=== PATIENT | female | born 1990 | race Caucasian/White ===

== ENCOUNTER → 2018-04-01 07:56 | Outpatient (CLI) | payer BC, SELFPAY ==
--- NOTE | 2018-04-01 08:00 | US_ITS ---
STUDY: ULTRASOUND OF THE FEMALE PELVIS - COMPLETE REASON FOR EXAM: Female, 27 years old. Pelvic pain. Dysfunctional uterine bleeding. LMP: Unknown. TECHNIQUE: Transabdominal and Transvaginal TECHNICAL QUALITY: Adequate. COMPARISON: None. FINDINGS: The uterus is retroverted and is in a midline position. The uterus measures 5.1 cm x 4.6 cm x 0.7 cm. Normal uterine cervix. The endometrium measures 1.7 mm in thickness, and is hyperechoic. There is no demonstrated endometrial mass. There is no demonstrated myometrial mass. I.U.D. - The patient does not have an I.U.D. The right ovary is visualized. The right ovary measures 5.1 cm x 4.1 cm x 3.1 cm. There is evidence of echogenic focus with posterior shadowing arising from the ovary. This measures 2.4 cm x 1.9 cm by 2.2 cm. A dermoid should BE ruled out. Correlation with a CT scan is recommended. There is normal arterial and normal venous vascularity. The left ovary is visualized. The left ovary measures 2.7 cm x 1.3 cm x 1.2 cm. There is no left ovarian cyst or ovarian mass. There is no visualized left adnexal mass or complex lesion. There is normal arterial and normal venous vascularity. There is minimal fluid in the cul-de-sac. Polycystic ovary disease: No. US/Transvaginal Non- IMPRESSION: Echogenic focus within the enlarged right ovary with posterior acoustical shadowing. A dermoid should be ruled out. Correlation with a CT scan of the pelvis is recommended for further evaluation. Electronically Signed: Kun Lang MD at 12:39 EDT Tel [phone], Service support ,
--- NOTE | 2018-04-01 08:00 | US_ITS ---
STUDY: ULTRASOUND OF THE FEMALE PELVIS - COMPLETE REASON FOR EXAM: Female, 27 years old. Pelvic pain. Dysfunctional uterine bleeding. LMP: Unknown. TECHNIQUE: Transabdominal and Transvaginal TECHNICAL QUALITY: Adequate. COMPARISON: None. FINDINGS: The uterus is retroverted and is in a midline position. The uterus measures 5.1 cm x 4.6 cm x 0.7 cm. Normal uterine cervix. The endometrium measures 1.7 mm in thickness, and is hyperechoic. There is no demonstrated endometrial mass. There is no demonstrated myometrial mass. I.U.D. - The patient does not have an I.U.D. The right ovary is visualized. The right ovary measures 5.1 cm x 4.1 cm x 3.1 cm. There is evidence of echogenic focus with posterior shadowing arising from the ovary. This measures 2.4 cm x 1.9 cm by 2.2 cm. A dermoid should BE ruled out. Correlation with a CT scan is recommended. There is normal arterial and normal venous vascularity. The left ovary is visualized. The left ovary measures 2.7 cm x 1.3 cm x 1.2 cm. There is no left ovarian cyst or ovarian mass. There is no visualized left adnexal mass or complex lesion. There is normal arterial and normal venous vascularity. There is minimal fluid in the cul-de-sac. Polycystic ovary disease: No. US/Pelvic (Non ) IMPRESSION: Echogenic focus within the enlarged right ovary with posterior acoustical shadowing. A dermoid should be ruled out. Correlation with a CT scan of the pelvis is recommended for further evaluation. Electronically Signed: Kun Lang MD at 12:39 EDT Tel [phone], Service support ,
== END ==
PROVIDERS: PCP Family Medicine; Visit Provider Nurse Practitioner Women's Health
DX: N93.0 Postcoital and contact bleeding (principal)
CPT/HCPCS: 76830; 76856; 93976

== ENCOUNTER 2022-01-22 06:19 | Day surgery (SDC) | payer OTHER, SELFPAY ==
--- NOTE | 2022-01-21 10:32 | PCM.HP.BLA ---
History and Physical Date of Admission: 01/22/22 HPI: The patient is a 31 year old female presenting for pre-operative visit. She is scheduled for laparoscopic right ovarian cystectomy, for right ovarian cyst, suspected mature teratoma on . Procedure discussed along with risks, benefits and complications. Other alternatives discussed for management. Consent form signed? Yes. ? ? PAST MEDICAL HISTORY PAST MEDICAL HISTORY Diagnosis Date ? Anemia ? ? Chlamydia ? ? Eczema ? ? Ovarian cyst ? ? ? PAST SURGICAL HISTORY PAST SURGICAL HISTORY Procedure Laterality Date ? ASPIRATION&/INJECTION GANGLION CYST ANY LOCATJ ? ? ? LASIK ? 2014 ? ORAL SURGERY PROCEDURE ? ? ? [place] teeth, 2009,2013 ? PAST SURGICAL HISTORY OF ? ? ? ACL ? TONSILLECTOMY HX ? CURRENT MEDICATIONS Current Outpatient Medications Medication Sig Dispense Refill ? docosanol (ABREVA TOPICAL) Apply to affected area. PRN ? ? ? cholecalciferol, vitamin D3, (VITAMIN D3 ORAL) Take by mouth. Nature Plus ? ? ? OTC NUTRITIONAL SUPPLEMENT Garden of life ( gummy) ? OTC NUTRITIONAL SUPPLEMENT Cleavers supplement, uses once daily (Patient not taking: Reported on 01/21/2022 ) ? ? ? No current facility-administered medications for this visit. ? ? ALLERGIES: Cats ? PERSONAL HISTORY: SOCIAL HISTORY Social History ? Tobacco Use ? Smoking status: Never Smoker ? Smokeless tobacco: Never Used Vaping Use ? Vaping Use: Never used Substance Use Topics ? Alcohol use: Not Currently ? ? Comment: Occasionally ? Drug use: No ? FAMILY HISTORY: FAMILY HISTORY FAMILY HISTORY Problem Relation Age of Onset ? Hypertension Mother ? ? Diabetes Father ? ? Hypertension Father ? ? Heart Father ? ? Allergies Sister ? ? Breast Cancer Sister 50 ? Half-Sister ? Allergies Sister ? ? No Known Problems Sister ? ? No Known Problems Sister ? ? other (pre-diabetes) Brother ? ? other (Dementia) Maternal Grandmother ? ? Cancer Maternal Grandfather ? ? lung ? Stroke Maternal Grandfather ? ? Stroke Paternal Grandmother ? ? Stroke Paternal Grandfather ? ? Food Allergy Daughter ? ? No Known Problems Son ? ? No Known Problems Son ? ? ? REVIEW OF SYMPTOMS: GENERAL: denies fevers or chills ENDOCRINOLOGY: has not been on steroids Cardiology : denies palpitations or chest pain Respiratory: denies SOB or cough Hematology: denies history of prolonged bleeding or easy bruising or VTE Allergy: Denies history of personal or family history of allergy to anesthesia ? PHYSICAL EXAMINATION: ? VITALS: Blood pressure 92/58, height 5' 6.5 (1.689 m), weight 158 lb (71.7 kg), last menstrual period 12/14/2020, currently . ? GENERAL: The patient is well nourished, well hydrated in no acute distress. , The patient is oriented to time, place, and person. NECK: Supple. No lynphadenopathy, normal thyroid, no thyromegaly. LUNGS: Clear to auscultation bilaterally. no wheezes, rhonchi or rales HEART: Regular rate and rhythm, Normal heart sounds and No murmurs or gallops ? IMPRESSION: Right ovarian cyst, supsect teratoma ? PLAN: The risks/benefits/alternatives and personal involved for the planned Laparoscopic right ovarian cystectomy, possible oophrectomy were reviewed with the patient. Her questions were answered to her satisfaction and she desires to proceed. Consent was signed. I reviewed with her postop instructions and expectations. ? ? I have reviewed and updated past medical and surgical history, medications and allergies Assessment & Plan Assessment/Plan (1) Benign teratoma of right ovary:
[2022-01-22] VITALS (15 sets, daily range): BP systolic 82–108; BP diastolic 49–73; PULSE 41–73; RESP 12–18; TEMP 36.6–37.1; O2SAT 94–99; BMI 25.2
--- NOTE | 2022-01-22 | OV_PTH ---
PATIENT: FERNANDO SWENSON LOC: [facility] – [place] U#:[id number] AGE/SX: 31/F ROOM: RE01/22/[address]: Dr. Jojo Ann MD : 1990 BED: DIS: 01/22/2022 SPEC #: [id number] RECD: 01/22/22 12:02 STATUS: POOL MOE #: [id number] MIGUE: 01/22/22 00:[address]: Jojo Ann DEPT: SURGICAL PATHOLOGY RECD BY: Raudel Lemus ENTERED: 01/22/22 12:02 SP TYPE: OVARY OTHR DR: Dr. Noé Salomon MD Tissues: OVARIAN CYST Procedures: Decalcification bone/plaque Surgery Specimen Level IV HEADER OPERATION: Right ovarian cystectomy PRE-OP DIAGNOSIS: Benign teratoma of right ovary TISSUE SUBMITTED: Right ovarian cyst MICROSCOPIC DIAGNOSIS Right ovarian cyst, cystectomy: Mature cystic teratoma, dermoid cyst (5 cm in greatest dimension). Physiologic follicular cyst. DEDRA:chinmay 01/29/2022 MICROSCOPIC DESCRIPTION Slides are reviewed. GROSS DESCRIPTION Received in fixative is one container labeled with the patient's name and designated right ovarian cyst. The specimen consists of a previously opened cyst measuring 5 x 4 x 3 cm. A focal solid area is noted measuring 3 x 2.5 x 2 cm. Sections of this area shows focal area of bone formation. The rest of the cyst wall measures up to 0.2 cm in thickness. A focal area on the cyst wall shows yellowish ragged surfaces. Human Resource Assistant sections are submitted in four cassettes as follows: 1 & 2 ? cyst wall, 3 & 4 ? solid area of fatty calcification. / DEDRA:chinmay 01/23/2022 TC:1 CPT: 15879, 42324
[2022-01-22 06:49] LABS: Internal QC Validated? YES +Cl - CLEAR BKGD; Pregnancy, Urine Negative Negative
[2022-01-22] MEDS: Lactated Ringers 1,000 ML 15 ML IV ×3 (06:49→12:53)
[2022-01-22] MEDS: Acetaminophen 500 MG Tablet 1000 MG PO (06:50)
[2022-01-22] MEDS: Celecoxib 200 MG Capsule 400 MG PO (06:51)
[2022-01-22 07:01] LABS: Hematocrit 41.2 % (37-47); Hemoglobin 13.3 g/dL (12.0-15.0); Mean Corp Hgb Conc 32.3 g/dL (32-36); Mean Corpuscular Hgb 30.6 pg (27.0-32.0); Mean Corpuscular Volume 94.9 fL (81-99); Mean Platelet Vol. 9.9 fl (6.2-12.0); Platelet Count 365 K/mm3 (150-450); RBC Distribution Width CV 13.7 % (11.6-14.6); RBC Distribution Width SD 47.8 fl (35.1-43.9); Red Blood Count 4.34 M/mm3 (4.2-5.4); White Blood Count 9.1 K/mm3 (4.4-11.0)
--- NOTE | 2022-01-22 07:30 | PCM.DC ---
Discharge Instructions Diet Discharge Diet: No restrictions Activity May resume sexual activity in: 1 week Dressing / Incision Call your doctor if your incision/area has: Sudden Increased Bleeding and Foul Smelling Discharge Call your doctor if you observe: Fever of 101 or Higher Cleanse incision/area with: Soap & Water (Your incisions have skin glue and it can get wet. Leave on until it falls off) Follow Up Care Please Follow Up With: Jojo Ann MD When: In my office or virtual visit in 1-2 weeks or as needed Test Results: Test results from this visit will be discussed in further detail at your follow-up appointment, if applicable. Discharge Plan Admission Primary Reason for Your Visit: Right ovarian cyst removal Attending Provider: Jojo Ann Primary Care Provider: Noé Salomon Discharge Orders/Prescriptions Prescriptions: No Action 400 mcg Tablet,Chewable 4 tab PO BID RF: 0 cholecalciferol (vitamin D3) [Vitamin D3] 10 mcg (400 unit) Tablet,Chewable 10 mcg PO DAILY RF: 0 Other Ambulatory Orders: COVID 19 AG RAPID (RN COLLECT) (Routine) Timeframe: [id number] Facility: [facility] - Location: Laboratory Ordered By: Dr. Jamse Tayolr Referrals / Follow Up: Noé Salomon MD [Primary Care Provider] - Disposition Disposition (needs filled in before D/C Order can be placed): Home, Self Care
--- NOTE | 2022-01-22 08:32 | PCM.OPRPT ---
Problems Associated Problem List Diagnoses (1) Benign teratoma of right ovary: Report of Operation Date of Procedure: 01/22/22 Pre-Operative Diagnosis: right ovarian teratoma Post-Operative Diagnosis: same Surgery/Procedure Performed:: Laparoscopic right ovarian cystectomy Description of Surgical Findings:: enlarged right ovary with teratoma with sebaceous material and calcified material, normal tubes and uterus, normal left ovary, otherwise normal peritoneal cvity Surgeon: Jojo Ann certification and selection specialist: Maria D Orellana certification and selection specialist: Kelly Type of Anesthesia: General Anesthesiologist: Marcello Flower Special Medications: none Specimen's removed: right ovarian cyst Drains: none Estimated Blood Loss (mL): 20 Fluids Replaced: 600 Description of Procedure: The patient was taken to the operating room where she was prepped and draped in the dorsolithotomy position. A weighted speculum was placed in the vagina and the anterior lip of the cervix was grasped with a tenaculum. The Sandie uterine manipulator was placed and the remainder of the instruments were removed from the vagina. Attention was turned to the abdomen. All port sites were infiltrated with 0.75% Marcaine before skin incisions were made. A 5 mm intraumbilical incision was made. The anterior abdominal wall was tented up with 2 towel clamps while a 5 mm blade less trocar and sleeve were directly inserted. Intraperitoneal placement was confirmed with the laparoscope. The pneumoperitoneum was created and the underlying abdominal contents were intact. The patient was placed in Trendelenburg. 5mm right and left lower quadrant ports were placed under direct visualization lateral to the inferior epigastric vessels. The bowel was swept away and the above findings were noted. The right ovarian cyst was noted. An incision was made with scissors and cautery on the surface of the cyst furthest from the infundibulopelvic ligament. The cyst ruptured. The suction submarine element coordinator was used to remove a large amount of sebaceous material. The cyst wall was stretched. The cyst wall was then carefully dissected off the underlying ovarian tissue by peeling it off. The entire cyst was removed the ovarian cyst fossa was identified any bleeding was Bovie cauterized. Some fibrillar was placed in the cyst defect and the ovarian tissue was folded around it. Suction submarine element coordinator was used to suction out any remaining sebaceous material. The umbilical incision was stretched with a Lena clamp and a Endo Catch bag was placed through this and the cyst was placed in the Endo Catch bag and removed without difficulty. Another inspection of the peritoneal cavity was performed and no active bleeding was noted. The lateral ports were removed after the pneumoperitoneum was released. The umbilical fascia was closed with a single 0 Vicryl [id number] suture. The skin incisions were closed with Monocryl suture in a subcuticular fashion and skin glue by me. The vaginal instruments were removed and the vaginal sweep was completed by me. The entire procedure was performed by me with assistance. All sponge and needle counts were correct and the patient was taken to the recovery room in stable condition. Grafts/Implants Used: none Procedure Start Time: 09:47 Procedure Stop Time: 08:31 Complications none Admit VTE Documentation VTE Present on Admission: No VTE Mechan Device Prophylaxis: SCD's VTE Pharm Prophylaxis ordered?: No Reason prophylaxis not ordered:: Procedure Not Indicated
--- NOTE | 2022-01-22 12:48 | SUR.PHASEII ---
THIS NURSE GOT HER UP TO THE RESTROOM TO TRY TO VOID. PATIENT VOMITED 4 TIMES AFTER ATTEMPTING TO GO TO THE RESTROOM. SHE WAS UNABLE TO GO. THIS NURSE GOT PATIENT BACK TO BED. I REQUESTED A NAUSEA MEDICINE AND DR. CRUZ GAVE ME AN ORDER FOR PHENERGAN 12.5 MG IM. THIS NURSE TOOK THE MEDICINE IN TO THE PATIENT TO GIVE AND SHE REFUSED IT AT THIS TIME. SUN GARCIA ASKED DR. CRUZ FOR A SCOPALAMINE PATCH AND THE PATIENT REFUSED THAT ALSO. WE WILL CONTINUE TO MONITOR HER.
== END 2022-01-22 14:15 | disposition home or self-care (01) ==
LOC: SDC 06:21 → AC 06:22
PROVIDERS: Anesthesiology; PCP Family Medicine; Referring Provider Obstetrics & Gynecology; Visit Provider Obstetrics & Gynecology
PROC: (CPT 58720; principal; 2022-01-22 07:15)
DX: D27.0 Benign neoplasm of right ovary (principal); Z20.822 Contact with and (suspected) exposure to COVID-19
CPT/HCPCS: 58662; 81025; 85027; 87426; 88305; 88311; C9803; J7120; J2405